=== PATIENT | male | born 1985 | race Two or more races ===

== ENCOUNTER 2024-06-04 11:55 | Emergency (ER) | payer BC ==
[~2024-06-04] VITALS: Ht 188 cm; Wt 93.0 kg
[2024-06-04 12:45] VITALS: BP 129/96; TEMP 98; O2SAT 100
[2024-06-04] MEDS ORDERED: ALPR1TAB2 PO (12:50)
== END 2024-06-04 16:10 | disposition left against medical advice (07) ==
LOC: ER 12:03
DX: F41.9 Anxiety disorder, unspecified (principal); F31.9 Bipolar disorder, unspecified; R45.1 Restlessness and agitation; R45.6 Violent behavior